=== PATIENT | male | born 1955 | race Caucasian/White ===

== ENCOUNTER 2020-08-31 16:16 | Emergency (ER) | payer OTHER ==
[2020-08-31] MEDS ORDERED: KEFLEX750 MG PO (18:32)
[2020-08-31] MEDS ORDERED: NORCO 5-325 TA1 EACH PO (18:32)
== END 2020-08-31 19:10 | disposition home or self-care (01) ==
LOC: FER 16:16
DX: S97.111A Crushing injury of right great toe, initial encounter (principal); S91.201A Unspecified open wound of right great toe with damage to nail, initial encounter; Z23 Encounter for immunization; W20.8XXA Other cause of strike by thrown, projected or falling object, initial encounter; Y92.009 Unspecified place in unspecified non-institutional (private) residence as the place of occurrence of the external cause
CPT/HCPCS: 73660; 90471; 90715

== ENCOUNTER → 2021-10-25 | Day surgery (SDC) | payer OTHER ==
[~2021-10-25] VITALS: Ht 182.9 cm; Wt 95.2 kg
[~2021-10-25] MED LIST: KEFLEX750 MG PO; NORCO 5-325 TA1 EACH PO; PROTONIX 40MG T40 MG PO; SYNTHROID75 MCG PO
== END | disposition home or self-care (01) ==
LOC: FAS 08:47
DX: K92.1 Melena (principal); K31.9 Disease of stomach and duodenum, unspecified; K62.1 Rectal polyp; K21.00 Gastro-esophageal reflux disease with esophagitis, without bleeding; K44.9 Diaphragmatic hernia without obstruction or gangrene; K64.8 Other hemorrhoids; M06.9 Rheumatoid arthritis, unspecified; E11.9 Type 2 diabetes mellitus without complications; E03.9 Hypothyroidism, unspecified; Z86.010 Personal history of colon polyps
CPT/HCPCS: J2250; J7120

== ENCOUNTER → 2022-01-14 | Day surgery (SDC) | payer OTHER ==
[~2022-01-14] VITALS: Ht 182.9 cm; Wt 95.2 kg
[~2022-01-14] MED LIST changes: +ACETAMINOPHEN500 M1 PO; +AMLODIPINE BESYL5 MG PO; +ATORVASTATIN CA40 MG PO; +COLACE100 MG PO; +OXY-IR 5MG5 MG PO
== END | disposition home or self-care (01) ==
LOC: FAS 09:44
DX: K81.1 Chronic cholecystitis (principal); K21.9 Gastro-esophageal reflux disease without esophagitis; K66.0 Peritoneal adhesions (postprocedural) (postinfection); E78.00 Pure hypercholesterolemia, unspecified; E03.9 Hypothyroidism, unspecified; Z86.010 Personal history of colon polyps; M06.9 Rheumatoid arthritis, unspecified
CPT/HCPCS: J1170; J1644; J1885; J2250; J2405; J2704; J2710; J3010; J7120